=== PATIENT | male | born 1960 | race Caucasian/White ===

== ENCOUNTER → 2020-10-25 10:02 | Outpatient (CLI) | payer OTHER, SELFPAY ==
[2020-10-25 11:31] LABS: Coronavirus 19 IgG Antibody Negative (Negative); Coronavirus 19 IgM Antibody Negative (Negative)
== END ==
PROVIDERS: Visit Provider Surgery
DX: Z01.812 Encounter for preprocedural laboratory examination (principal); Z11.52 Encounter for screening for COVID-19; Z12.11 Encounter for screening for malignant neoplasm of colon
CPT/HCPCS: 36415; 86328

== ENCOUNTER 2020-10-26 07:25 | Day surgery (SDC) | payer OTHER, SELFPAY ==
[2020-10-26 07:44] VITALS: BP 154/80; PULSE 71; RESP 16; TEMP 36.4; O2SAT 97; BMI 27.3
--- NOTE | 2020-10-26 08:05 | P.PN_ITS ---
[facility] Anesthesia Checklist - Patient Identification Patient Identification: Arm Band - Structural Data Admitted From: Home Planned Operative Procedure/s: colonoscopy Consent for Planned Operative Procedure(s) Verified: Yes Verified Documents: Surgical Consent, History and Physical - NPO Status Verified Time NPO: 00:00 - Additional verifications Anesthesia Reactions: No - Airway Assessment C-Spine Mobility Assessed: Yes (mp2) TMJ Mobility Assessed: Yes Dentition: Edentulous - Neurological Assessment Level of Consciousness: Awake, Alert - Anesthesia Plan Anesthesia Risk discussed: Yes Anesthesia Plan: Verified ASA Class: II Anesthesia Type: MAC [facility] History I have reviewed the patient's past medical history: Yes Medical History: Denies:: Cancer, Diabetes Mellitus Type 1, Diabetes Mellitus Type 2, Internal Pacemaker, MRSA, Seizures *Have you ever received a pneumonia vaccine?: No *Have you received a flu vaccine this season?: No Anesthesia experience/problems:: nac Other Surgeries: Yes: No Previous Surgery. No: Pacemaker Amputation: No Fractures: No - *Social History Last grade of school completed: High school graduate Smoking Status: Current every day smoker Tobacco Type: cigarettes # Packs/Day (cigarettes): 1 Alcohol Intake: current Alcohol Intake Frequency:: 3 or more drinks per day Substance Use Type: denies use *Occupational Status:: employed Housing: house Household Members: none *Travel in the last 8 weeks: Inside the [facility] Family Hx:: No significant family history
[2020-10-26 08:15] VITALS: O2SAT 97
[2020-10-26 09:56] VITALS: BP 89/61; PULSE 73; RESP 12; TEMP 36.6; O2SAT 93
--- NOTE | 2020-10-26 10:01 | P.PCN_ITS ---
- Procedure: Date: 10/26/20 Patient Date of :: 1960 Procedure Performed:: Colonoscopy with numerous polypectomy, several extremely large polyps Indications:: Patient is a 60-year-old male from [place] referred by Ezra Aguero MD essentially for screening colonoscopy. Patient has never had prior colonoscopy. He has no diagnosed medical conditions. He does however state that he has had some lower abdominal discomfort and pressure for about 2 months. He has not noticed any change in his bowel habits. Performing Provider:: Enrique Valencia MD Referring Provider:: Ezra Aguero MD Sedation:: MAC sedation Procedure:: Patient was taken to endoscopy procedure room. He was positioned in lateral decubitus position. Adequate intravenous sedation was achieved with anesthesia titration of propofol. Variable stiffness Olympus colonoscope was inserted via the anus. With some minor difficulty due to significant floppiness and redundancy of the sigmoid colon it was advanced to the cecum. Colonic preparation was good. Ileocecal valve and appendiceal orifice were identified. Colonoscope was withdrawn through the colon with careful surveillance. In the a sending colon near the hepatic flexure there was a very large sessile ridge polyp. Removal was difficult. This ultimately required injection of Elaview submucosally and use of the large hot snare. Near this area at the hepatic flexure there was another large adenomatous polyp removed with hot snare. These were sent as hepatic flexure polyp x2. It appeared as though both polyps were able to be removed in their entirety. They did require retrieval with use of the Tapia net to partially macerate the polyps with removal piecemeal. Both of these polypectomy sites were marked with Xiomara ink. In the proximal transverse colon there was a diminutive polyp removed with cold cutting snare but this ultimately was unable to be retrieved. Sigmoid colon Polyp was encountered and removed with snare. There was a proximal rectal polyp which was quite large and adenomatous measuring at least 25 mm. This was removed in a piecemeal fashion using hot snare. Required piecemeal retrieval using Tapia net. Distal rectal polyp was and removed with snare. There was an adenomatous anorectal polyp removed with cold cutting snare. There were several hyperplastic rectal polyps. The larger of these which appeared potentially more adenomatous were removed with cold cutting snare. Colonoscope was withdrawn. Findings:: Patient had numerous polyps. He had very large polyp in the ascending colon and at hepatic flexure. Ascending colon polyp just proximal to the hepatic flexure appeared as a ridge polyp and quite large. He also had a very large, greater than 25 mm, adenomatous polyp in the proximal rectum. There were numerous other polyps noted as well. Recommendations:: Pending the pathology may need repeat colonoscopy in 6 to 12 months at most given the extremely large numerous polyps. Complications:: None immediately apparent Estimated blood obtained (mL): 3 Comment:: Please note that procedure time was 1 hour 37 minutes
[2020-10-26 10:06] VITALS: BP 95/55; PULSE 75; RESP 14; O2SAT 93
[2020-10-26 10:16] VITALS: BP 109/74; PULSE 73; RESP 16
[2020-10-26 10:26] VITALS: BP 115/66; PULSE 72; RESP 16; TEMP 36.3; O2SAT 95
== END 2020-10-26 10:32 | disposition home or self-care (01) ==
LOC: OUTP 07:27
PROVIDERS: PCP Nurse Practitioner; Visit Provider Surgery
PROC: 0DJD8ZZ Inspection of Lower Intestinal Tract, Via Natural or Artificial Opening Endoscopic (ICD-10-PCS; CPT 45385; principal; 2020-10-26 08:30)
DX: Z12.11 Encounter for screening for malignant neoplasm of colon (principal); K63.5 Polyp of colon
CPT/HCPCS: 45385; 45381

== ENCOUNTER → 2023-07-03 11:00 | Outpatient (CLI) | payer OTHER, SELFPAY ==
[2023-07-03 20:38] LABS: Basophils % 0.7 % (0.1-2.0); Eosinophils # 0.2 K/mm3 (0.0-0.4); Eosinophils % 2.5 % (0.1-12.0); Hematocrit 53.1 % (42.0-52.0); Hemoglobin 16.6 g/dL (14.1-18.0); Lymphocytes # 1.7 K/mm3 (0.7-4.5); Lymphocytes % 27.4 % (10-50); Mean Corpuscular HGB Conc 31.3 g/dL (31.8-35.4); Mean Corpuscular Hemoglobin 32.2 pg (27.0-31.2); Mean Platelet Volume 10.2 fl (7.4-10.4); Monocytes # 0.5 K/mm3 (0.1-1.0); Monocytes % 7.3 % (1.7-9.3); Neutrophils # 3.9 K/mm3 (1.8-7.8); Neutrophils % 62.2 % (37.0-80.0); Platelet Count 252 K/mm3 (142-424); Red Blood Count 5.16 M/mm3 (4.60-6.20); Red Cell Distribution Width 13.1 % (11.5-17.5); White Blood Count 6.3 K/mm3 (4.8-10.8)
[2023-07-03 20:57] LABS: Alanine Aminotransferase 42 U/L (12-78); Albumin Level 4.9 g/dl (3.5-5.0); Albumin/Globulin Ratio 1.5 (1.1-1.8); Alkaline Phosphatase 107 U/L (38-126); Anion Gap 16.4 mEq/L (5-15); Aspartate Amino Transferase 42 U/L (17-59); Bilirubin,Total 0.6 mg/dl (0.2-1.3); Blood Urea Nitrogen 13 mg/dl (9-20); Calcium 9.8 mg/dl (8.4-10.2); Carbon Dioxide 25 mmol/L (22.0-30.0); Chloride 101 mmol/L (98-107); Chol/HDL Ratio 5.9 (1-3.5); Cholesterol 305 mg/dl (140-200); Estimated Glomerular Filt Rate 85 ml/min (>60); GFR (African American) 103 ML/MIN (>60); Globulin 3.2 g/dL (1.3-3.2); Glucose 98 mg/dl (74-100); HDL Cholesterol 52 mg/dl (40-60); Potassium 4.4 mmoL/L (3.5-5.1); Sodium 138 mmol/L (136-145); Total Protein,Serum 8.1 g/dl (6.3-8.2); Triglycerides 285 mg/dl (30-150); VLDL Cholesterol 57 mg/dL (0-40)
[2023-07-03 21:08] LABS: Direct LDL Cholesterol 175.99 mg/dL (100-129)
[2023-07-03 21:30] LABS: Prostate Specific Ag Screen 0.8 ng/ml (0.0-4.0); Thyroid Stimulating Hormone 5.48 uIU/mL (0.465-4.68)
[2023-07-03 22:35] LABS: Hemoglobin A1C 5.6 % (4.0-6.0)
== END ==
PROVIDERS: PCP Nurse Practitioner; Visit Provider Nurse Practitioner
DX: R06.02 Shortness of breath (principal); R55 Syncope and collapse; Z12.5 Encounter for screening for malignant neoplasm of prostate; Z13.1 Encounter for screening for diabetes mellitus; Z13.220 Encounter for screening for lipoid disorders
CPT/HCPCS: 80053; 80061; 83036; 84443; 85025; G0103